=== PATIENT | female | born 1980 | race Caucasian/White ===

== ENCOUNTER 2017-01-23 11:44 | Emergency (ER) | payer BC ==
[~2017-01-23] VITALS: Ht 162.6 cm; Wt 60.5 kg
[~2017-01-23 11:44] MED LIST: LIDODERM 5% P1 PATCH TD; MELOXICAM15 MG PO; NAPROXEN500 MG PO; PEN-VEE K,VEET500 MG PO; PERCOCET 5/31 TABLET PO; PREDNISONE20 MG PO; ULTRAM50 MG PO
[2017-01-23] MEDS ORDERED: KEFLEX500 MG PO (13:23)
[2017-01-23] MEDS ORDERED: BACTRIM,SEPT1 TABLET PO (13:23)
[2017-01-23] MEDS ORDERED: ULTRAM50 MG PO (13:23)
[2017-01-23 14:07] VITALS: BP 124/59
[2017-01-23] MEDS ORDERED: ADDERALL10 MG PO (14:15)
== END 2017-01-23 14:07 | disposition home or self-care (01) ==
LOC: EME 11:44
PROC: 0H9DXZZ Drainage of Right Lower Arm Skin, External Approach (ICD-10-PCS; principal; 2017-01-23)
DX: L02.413 Cutaneous abscess of right upper limb (principal); F17.200 Nicotine dependence, unspecified, uncomplicated
CPT/HCPCS: 99281; 99283